=== PATIENT | male | born 1955 | race Caucasian/White ===

== ENCOUNTER → 2020-12-26 | Outpatient (CLI) | payer MEDICARE | LOC: M LABSMTC 09:25 | PROVIDERS: ATTEND Surgery Vascular Surgery | DX: Z01.812 Encounter for preprocedural laboratory examination (principal); Z20.822 Contact with and (suspected) exposure to COVID-19; I70.211 Atherosclerosis of native arteries of extremities with intermittent claudication, right leg; I70.92 Chronic total occlusion of artery of the extremities ==